=== PATIENT | male | born 1970 | race Caucasian/White ===

== ENCOUNTER 2022-08-21 09:47 | Inpatient (IN) ==
[2022-08-21] MEDS ORDERED: IOPAMIDOL 100 ML BOTTLE IV ONE (09:48)
--- NOTE | 2022-08-21 10:07 | Emergency Department Note ---
HPI General Chief complaint: Rib Pain Stated complaint: rib pain Time Seen by Provider: 08/21/22 10:02 Source: patient Mode of arrival: wheelchair Limitations: no limitations History of Present Illness HPI Narrative: Narrative: This 52-year-old returns for the second time in 24 hours after having been diagnosed with a PE yesterday. He returned last night for increased lateral chest pain and shortness of breath. He was given increased pain meds only. He states his O2 sats are dropping down into the 80s with exertion now and he complains again of more pain.. Patient's other past medical here history is a recent prostatectomy. As well as GERD. He denies any history of ulcers. Related Data Home Medications Medication Instructions Recorded Confirmed omeprazole 20 mg capsule,delayed 20 mg PO BID 01/16/21 01/22/22 release Previous Rx's Medication Instructions Recorded apixaban 5 mg tablet See Rx Instructions .Route 08/20/22 .COMPLEX #74 tabs Allergies Allergy/AdvReac Type Severity Reaction Status Date / Time gluten Allergy Severe throat Verified 08/21/22 09:50 contricts Review of Systems ROS ROS Narrative: Narrative: All systems ED: reviewed and negative except as stated. [facility] Narrative Patient History Narrative: Narrative: Medical/Surgical/Family History All Active Problems (Updated 08/21/22 @ 11:44 by Kenney Adam MD) Pulmonary embolism (Acute) Pulmonary air embolism (Acute) Acute atelectasis (Acute) Pulmonary emboli (Acute) Elevated PSA (Acute) Hives (Acute) Eosinophilic esophagitis (Acute) Elevated liver enzymes (Acute) Elevated cholesterol (Acute) Establishing care with new doctor, encounter for (Acute) Acid reflux (Chronic) Bloody stool (Chronic) Lower abdominal pain (Chronic) Acute URI (Chronic) Medical History Acid reflux Acute URI Bloody stool Hives Lower abdominal pain Surgical History History of appendectomy (~1990) Family History Father Adenocarcinoma, lung Hypertension Social History Smoking Status: Never smoker Alcohol Intake Frequency: a few times a month Substance Use: does not use Exam Narrative Narrative: Narrative: General alert and oriented x3 in no acute distress on 3 L of oxygen. CV: Regular rate and rhythm without murmurs clicks rubs or gallops. Lungs: Good air exchange with no rales rhonchi or wheezes heard. General Limitations: no limitations Course Vital Signs Vital signs: Vital Signs Temperature 97.2 F 08/21/22 09:47 Pulse Rate 114 H 08/21/22 09:47 Respiratory Rate 22 08/21/22 09:47 Blood Pressure 121/77 08/21/22 09:47 Pulse Oximetry (%) 92 08/21/22 09:47 Oxygen Delivery Method Room Air 08/21/22 09:47 Temperature 97.2 F 08/21/22 09:47 Pulse Rate 94 H 08/21/22 12:01 Respiratory Rate 20 08/21/22 11:34 Blood Pressure 128/85 08/21/22 12:01 Pulse Oximetry (%) 96 08/21/22 12:01 Oxygen Delivery Method Room Air 08/21/22 09:47 MDM MDM Narrative Medical decision making narrative: Narrative: EKG showed a normal sinus rhythm with no signs of ischemia or S1 Q 3 pattern. Patient's vitals show a tachycardia to 105 and tachypnea at 24 with an O2 sat on 3 L of 94%. CTA showed: Mediastinum, vascular:Main pulmonary artery, right pulmonary artery, left pulmonary artery are negative. Previous examination demonstrated bilateral pulmonary emboli to the lower lobes. There is decreased clot burden with mild residual abnormality. No evidence for new pulmonary emboli. Main pulmonary artery measures 3.2 cm in cross-sectional diameter which may indicate pulmonary arterial hypertension. Heart:No cardiomegaly. No pericardial effusion. No significant reflux of contrast material into the hepatic veins or inferior vena cava. Pleura:Small right pleural effusion is increased since previous examination. Elevated right hemidiaphragm has increased since previous study. Axilla, supraclavicular regions, chest wall:No pathologic axillary or supraclavicular adenopathy. IMPRESSION: 1. Decreased bilateral lower lobe collapse burden. No new pulmonary emboli 2. Increased right lower lobe consolidation and volume loss. Elevated right hemidiaphragm is more prominent than on previous examination. 3. Very small right pleural effusion 4. Hepatic steatosis 5. Mildly enlarged main pulmonary artery. This may be secondary to pulmonary arterial hypertension Doctor who was contacted (interventional radiologist) and read the CT report and he felt that the patient is having just atelectasis from splinting because of pain. He suggested put him in the hospital on oxygen and pain medicine and possibly using a heparin drip. Patient was placed on aspirin while here in the ED in addition to his Eliquis. It should be noted there is no more clot seen in the previous CT - only atelectasis. Patient had a interstitial inflammation reaction to the morphine. It was not exactly urticaria just approximately 8 inches of erythema by 3 inches across and the site where the morphine and been given. Sepsis Sepsis Identified: No Lab Data 08/21/22 10:20 Labs: Lab Results 08/21/22 08/21/22 08/21/22 Range/Units 10:20 10:20 10:22 WBC 12.9 H (4.5-11.0) K/mcL RBC 4.90 (4.63-6.08) M/mcL Hgb 14.9 (13.7-17.5) g/dL Hct 43.6 (40.1-51.0) % POC Hct (41-55) MCV 89.0 (80.0-100.0) fL MCH 30.4 (26.0-34.0) pg MCHC 34.2 (31.0-36.0) g/dL RDW 12.9 (11.5-14.5) % Plt Count 228 (140-440) K/mcL MPV 10.4 (8.8-12.5) fL Immature Gran % (Auto) 0.9 H (0.0-0.5) % Neut % (Auto) 78.1 H (38.0-78.0) % Lymph % (Auto) 7.8 L (15.5-49.0) % [place] % (Auto) 12.7 H (1.0-12.0) % Eos % (Auto) 0.2 (0.0-7.0) % Baso % (Auto) 0.3 (0.0-2.0) % Lymph # (Auto) 1.01 L (1.50-4.80) K/mcL [place] # (Auto) 1.64 H (0.10-0.90) K/mcL Eos # (Auto) 0.02 (0.00-0.70) K/mcL Baso # (Auto) 0.04 (0.00-0.30) K/mcL Immature Gran # 0.11 H (0.00-0.05) K/mcl Absolute Neutrophils 10.10 H (1.80-8.00) K/mcL POC PT (11.9-14.5) POC INR (0.8-1.2) POC Sodium (133-145) POC Potassium (3.3-5.1) POC Chloride (96-108) POC Total CO2 (22-30) POC BUN (6-20) POC Creatinine (0.6-1.2) POC Glucose (70-105) POC WB Ioniz Calcium (1.16-1.32) NT-Pro-B Natriuret Pep 75.9 (<125.0) pg/mL POC Troponin I < 0.02 (0.00-0.08) 08/21/22 08/21/22 Range/Units 10:25 10:26 WBC (4.5-11.0) K/mcL RBC (4.63-6.08) M/mcL Hgb (13.7-17.5) g/dL Hct (40.1-51.0) % POC Hct 43.0 (41-55) MCV (80.0-100.0) fL MCH (26.0-34.0) pg MCHC (31.0-36.0) g/dL RDW (11.5-14.5) % Plt Count (140-440) K/mcL MPV (8.8-12.5) fL Immature Gran % (Auto) (0.0-0.5) % Neut % (Auto) (38.0-78.0) % Lymph % (Auto) (15.5-49.0) % [place] % (Auto) (1.0-12.0) % Eos % (Auto) (0.0-7.0) % Baso % (Auto) (0.0-2.0) % Lymph # (Auto) (1.50-4.80) K/mcL [place] # (Auto) (0.10-0.90) K/mcL Eos # (Auto) (0.00-0.70) K/mcL Baso # (Auto) (0.00-0.30) K/mcL Immature Gran # (0.00-0.05) K/mcl Absolute Neutrophils (1.80-8.00) K/mcL POC PT 17.4 H (11.9-14.5) POC INR 1.5 H (0.8-1.2) POC Sodium 135 (133-145) POC Potassium 4.0 (3.3-5.1) POC Chloride 100 (96-108) POC Total CO2 23.0 (22-30) POC BUN 20 (6-20) POC Creatinine 1.2 (0.6-1.2) POC Glucose 114 H (70-105) POC WB Ioniz Calcium 1.18 (1.16-1.32) NT-Pro-B Natriuret Pep (<125.0) pg/mL POC Troponin I (0.00-0.08) Discharge Plan Patient/Caregiver Discharge Instructions Pt seen by [employer]ER/PA only: No Clinical Impression: Acute atelectasis, Pulmonary emboli Patient Disposition: Xfer As Inpt ([facility]) Follow up with: Dana Cantrell PA-C [Primary Care Provider] - Prescriptions: No Action omeprazole 20 mg capsule,delayed release(DR/EC) 20 mg PO BID apixaban 5 mg tablet See Rx Instructions .ROUTE .COMPLEX Qty: 74 0RF Rx Instructions: first 7 days 2 tab (10mg) BID following first 7 days 5mg BID
[2022-08-21] MEDS ORDERED: ASPIRIN 81 MG TAB.CHEW CHEWED ONE (10:17)
[2022-08-21 10:29] LABS: POC Calcium, Ionized 1.18 (1.16-1.32); POC Creatinine 1.2 (0.6-1.2)
[2022-08-21 10:29] LABS: POC INR 1.5 (0.8-1.2); POC Pro Time 17.4 (11.9-14.5)
--- NOTE | 2022-08-21 11:04 | Cat Scan Report ---
INDICATION: pos PE worse pain SOB COMPARISON: Previous pulmonary CTA dated 08/20/2022 TECHNIQUE: Axial images obtained through the chest. 80ml Isovue 370 injected intravenously, and scanning was performed during pulmonary arterial phase. Sagittally and coronally reformatted images were obtained. MIP reformatted images. FINDINGS: Lungs:Increased pulmonary parenchymal consolidation in the right lower lobe. Consolidation may be secondary to pulmonary infarction, infection, and volume loss. Findings are slightly worse than on 08/20/2022. There is mild linear density at the left lung base most consistent with atelectasis. Mediastinum, vascular:Main pulmonary artery, right pulmonary artery, left pulmonary artery are negative. Previous examination demonstrated bilateral pulmonary emboli to the lower lobes. There is decreased clot burden with mild residual abnormality. No evidence for new pulmonary emboli. Main pulmonary artery measures 3.2 cm in cross-sectional diameter which may indicate pulmonary arterial hypertension. Heart:No cardiomegaly. No pericardial effusion. No significant reflux of contrast material into the hepatic veins or inferior vena cava. Pleura:Small right pleural effusion is increased since previous examination. Elevated right hemidiaphragm has increased since previous study. Axilla, supraclavicular regions, chest wall:No pathologic axillary or supraclavicular adenopathy. Musculoskeletal:Negative thoracic spine. No compression fracture. No lytic lesion. No rib or sternal lesions Upper Abdomen:Low density liver consistent with hepatic steatosis IMPRESSION: 1. Decreased bilateral lower lobe collapse burden. No new pulmonary emboli 2. Increased right lower lobe consolidation and volume loss. Elevated right hemidiaphragm is more prominent than on previous examination. 3. Very small right pleural effusion 4. Hepatic steatosis 5. Mildly enlarged main pulmonary artery. This may be secondary to pulmonary arterial hypertension The exam was performed using radiation dose optimization techniques including, but not limited to, automated exposure control, adjustment of the mA and/or kV according to patient size and use of iterative reconstruction technique. Interpreted and Authenticated by: Phoenix Sorensen 08/21/22
[2022-08-21] MEDS: morphine 2 MG/ML VIAL IV PRN ×2 (11:21→13:07)
[2022-08-21 11:40] LABS: Basophils # (Auto) 0.04 K/mcL (0.00-0.30); Basophils % (Auto) 0.3 % (0.0-2.0); Eosinophils # (Auto) 0.02 K/mcL (0.00-0.70); Eosinophils % (Auto) 0.2 % (0.0-7.0); Hematocrit 43.6 % (40.1-51.0); Hemoglobin 14.9 g/dL (13.7-17.5); Lymphocytes # (Auto) 1.01 K/mcL (1.50-4.80); Lymphocytes % (Auto) 7.8 % (15.5-49.0); Mean Corpuscular HGB Conc 34.2 g/dL (31.0-36.0); Mean Platelet Volume 10.4 fL (8.8-12.5); Monocytes # (Auto) 1.64 K/mcL (0.10-0.90); Monocytes % (Auto) 12.7 % (1.0-12.0); Neutrophils % (Auto) 78.1 % (38.0-78.0); Platelet Count 228 K/mcL (140-440); Red Cell Distribution Width 12.9 % (11.5-14.5); WBC 12.9 K/mcL (4.5-11.0)
[2022-08-21 12:03] LABS: proBNP 75.9 pg/mL (<125.0)
[2022-08-21] MEDS ORDERED: diphenhydrAMINE 50 MG/ML VIAL IV ONE (12:09)
--- NOTE | 2022-08-21 13:12 | Internal Med History&Physical ---
HPI History of Present Illness Patient information: Note initiated : 08/21/22 at 1:02 pm Service Date, if different from initiated Date: [] Patient: Adam Ewing 52 y/o M admitted on for rib pain. Chief Complaint: [] History of present illness: Mr. Ewing is a 52 year old M Presents today with continued severe chest pain and shortness of breath and hypoxia with exertion. Patient states his troponin to the 80s with exertion and his said he dropped to the mid 70s when getting into the car. 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 Patient did have prostatectomy on the and currently has a Hendrickson catheter in place. Work-up in ED revealed bilateral lower lobe PEs. Patient was satting well on room air and was started on Eliquis. Patient does report an occasional cough of clear thick sputum. Some occasional nausea. He has sharp pain in the right lower back that is made worse by breathing. Heart rate 105. Vital signs stable otherwise. CTA today showed no new pulmonary emboli, atelectasis noted. Some consolidation right lower lobe increased. Review of Systems: Pertinent positives as above denies headache/vomiting/abdominal pain/diarrhea. Remaining 10 point review of system reviewed negative PFSH PFSH All Active Problems (Updated 08/21/22 @ 11:44 by Kenney Adam MD) Pulmonary embolism (Acute) Pulmonary air embolism (Acute) Acute atelectasis (Acute) Pulmonary emboli (Acute) Elevated PSA (Acute) Hives (Acute) Eosinophilic esophagitis (Acute) Elevated liver enzymes (Acute) Elevated cholesterol (Acute) Establishing care with new doctor, encounter for (Acute) Acid reflux (Chronic) Bloody stool (Chronic) Lower abdominal pain (Chronic) Acute URI (Chronic) Medical History Acid reflux Acute URI Bloody stool Hives Lower abdominal pain Surgical History History of appendectomy (~1990) Family History Father Adenocarcinoma, lung Hypertension Social History marital status: occupational status: employed occupation: [employer] smoking status: Never smoker smoking status stop date: 07/19/90 alcohol intake frequency: a few times a month substance use type: does not use MEDS/ALLERGIES Home Medications and Allergies Home Medications Medication Instructions Recorded Confirmed Type omeprazole 20 mg capsule,delayed 20 mg PO BID 01/16/21 01/22/22 History release apixaban 5 mg tablet See Rx Instructions .Route 08/20/22 Rx .COMPLEX #74 tabs Allergies Allergy/AdvReac Type Severity Reaction Status Date / Time gluten Allergy Severe throat Verified 08/21/22 09:50 contricts EXAM Constitutional Vitals: Temp Pulse Resp BP Pulse Ox O2 Del Method 97.2 F 82 20 124/87 96 Room Air 08/21/22 09:47 08/21/22 12:46 08/21/22 11:34 08/21/22 12:46 08/21/22 12:46 08/21/22 09:47 Exam: General: Alert, Awake, No acute Distress Eyes/N/T: EOMI, PERRL, Head/Neck: neck supple, normocephalic atraumatic CV: RRR, No murmurs, normal s1/s2 Pulm: Clear b/l anteriorly, no wheezing/rhonchi/rales Abd: soft, nontender, +BS x4 Ext: no clubbing/cyanosis/edema Neuro: Alert, no focal deficits, moves all extremities, CN 2-12 grossly intact, sensations intact b/l upper/lower Skin: warm/dry DATA Data Completed and Pending Labs: Labs from last 24 hours 08/21/22 08/21/22 08/21/22 10:26 10:25 10:22 WBC RBC Hgb Hct POC Hct 43.0 MCV MCH MCHC RDW Plt Count MPV Immature Gran % (Auto) Neut % (Auto) Lymph % (Auto) [place] % (Auto) Eos % (Auto) Baso % (Auto) Lymph # (Auto) [place] # (Auto) Eos # (Auto) Baso # (Auto) Immature Gran # Absolute Neutrophils POC PT 17.4 H POC INR 1.5 H POC Sodium 135 POC Potassium 4.0 POC Chloride 100 POC Total CO2 23.0 POC BUN 20 POC Creatinine 1.2 POC Glucose 114 H POC WB Ioniz Calcium 1.18 NT-Pro-B Natriuret Pep Procalcitonin POC Troponin I < 0.02 08/21/22 08/21/22 08/21/22 10:20 10:20 10:04 WBC 12.9 H RBC 4.90 Hgb 14.9 Hct 43.6 POC Hct MCV 89.0 MCH 30.4 MCHC 34.2 RDW 12.9 Plt Count 228 MPV 10.4 Immature Gran % (Auto) 0.9 H Neut % (Auto) 78.1 H Lymph % (Auto) 7.8 L [place] % (Auto) 12.7 H Eos % (Auto) 0.2 Baso % (Auto) 0.3 Lymph # (Auto) 1.01 L [place] # (Auto) 1.64 H Eos # (Auto) 0.02 Baso # (Auto) 0.04 Immature Gran # 0.11 H Absolute Neutrophils 10.10 H POC PT POC INR POC Sodium POC Potassium POC Chloride POC Total CO2 POC BUN POC Creatinine POC Glucose POC WB Ioniz Calcium NT-Pro-B Natriuret Pep 75.9 Procalcitonin 0.41 H POC Troponin I A/P Narrative A/P Narrative: A: *b/l PE: recent surgery(prostatectomy) *possible developing PNA: -elevated pct from above vs 2/2 recent surgery *Acute hypoxic respiratory failure: 2/2 above plus atelectasis *Pleuritic chest pain: 2/2 above *h/o prostate cancer: Recent prostatectomy -hendrickson in place and on macrobid *GERD: *Obesity: BMI 31 P: -Eliquis -O2 supp and wean as able -pain control -IS -Abx, pending SC -Home medication reconciliation -f/u with urology as scheduled -post-op urology nursing care cont Time Spent With Patient Time: Total time spent is greater than 50% in coordination of care (as documented) at patient's floor/unit and/or counseling patient: Initial: Total time with patient: 75 - 90 minutes
[2022-08-21] MEDS ORDERED: SENNOSIDES 1 TABLET PO PRN (14:54)
[2022-08-21] MEDS ORDERED: ACETAMINOPHEN 325 MG TABLET PO PRN (14:54)
[2022-08-21] MEDS ORDERED: MAGNESIUM SULFATE 2 GM/50 ML BAG IV PRN (14:54)
[2022-08-21] MEDS ORDERED: POTASSIUM CHLORIDE 40 MEQ in DEXTROSE 5% IN WATER 500 ML IV PRN (14:54)
[2022-08-21] MEDS ORDERED: cefTRIAXone 2 GM in DEXTROSE 5% IN WATER 50 ML IV SCH (14:54)
[2022-08-21] MEDS ORDERED: IPRATROPIUM/ALBUTEROL 3 ML AMPUL.NEB NEB PRN (14:54)
[2022-08-21] MEDS ORDERED: POTASSIUM CHLORIDE 20 MEQ TABLET PO PRN ×2 (14:54)
[2022-08-21] MEDS ORDERED: AZITHROMYCIN 500 MG in DEXTROSE 5% IN WATER 250 ML IV SCH (14:54)
[2022-08-21] MEDS ORDERED: ONDANSETRON 4 MG/2 ML VIAL IV PRN (14:54)
[2022-08-21] MEDS ORDERED: POLYETHYLENE GLYCOL 3350 17 GM PACKET PO PRN (14:54)
[2022-08-21] MEDS ORDERED: 0.9 % SODIUM CHLORIDE 1,000 ML IV SCH (14:54)
[2022-08-21] MEDS: HYDROcodone/APAP 5/325MG TABLET PO PRN ×3 (15:11→23:56)
[2022-08-21] MEDS: cefTRIAXone 2 GM in DEXTROSE 5% IN WATER 50 ML IV SCH (16:19)
[2022-08-21] MEDS: morphine 4 MG/ML VIAL IV PRN ×3 (16:19→21:39)
[2022-08-21 16:41] LABS: Lymphocytes % 8 % (15-49); Monocytes % (Manual) 8 % (1-12); Platelet Estimate NORMAL (Normal); RBC Morphology NORMAL (Normal); Segmented Neutrophils % 84 % (38-78)
[2022-08-21] MEDS: 0.9 % SODIUM CHLORIDE 10 ML SYRINGE IV SCH ×2 (17:30→21:21)
[2022-08-21] MEDS: AZITHROMYCIN 500 MG in DEXTROSE 5% IN WATER 250 ML IV SCH (17:35)
[2022-08-21] MEDS: DOCUSATE SODIUM 100 MG CAPSULE PO SCH (21:21)
[2022-08-21] MEDS: APIXABAN 5 MG TABLET PO SCH (21:21)
[2022-08-21] MEDS ORDERED: HYDROcodone/APAP 5/325MG TABLET PO ONE (23:54)
[2022-08-22] MEDS: morphine 4 MG/ML VIAL IV PRN ×2 (01:56→05:24)
[2022-08-22] MEDS ORDERED: HYDROcodone/APAP 5/325MG TABLET PO ONE (04:00)
[2022-08-22] MEDS: HYDROcodone/APAP 5/325MG TABLET PO PRN ×2 (04:01→11:22)
[2022-08-22] MEDS: 0.9 % SODIUM CHLORIDE 10 ML SYRINGE IV SCH ×2 (05:25→14:03)
[2022-08-22 06:31] LABS: Basophils # (Auto) 0.05 K/mcL (0.00-0.30); Basophils % (Auto) 0.4 % (0.0-2.0); Eosinophils # (Auto) 0.21 K/mcL (0.00-0.70); Eosinophils % (Auto) 1.8 % (0.0-7.0); Hematocrit 40.6 % (40.1-51.0); Hemoglobin 13.6 g/dL (13.7-17.5); Lymphocytes # (Auto) 1.28 K/mcL (1.50-4.80); Lymphocytes % (Auto) 11.1 % (15.5-49.0); Mean Cell Volume 88.3 fL (80.0-100.0); Mean Corpuscular HGB Conc 33.5 g/dL (31.0-36.0); Mean Platelet Volume 9.9 fL (8.8-12.5); Monocytes % (Auto) 15.6 % (1.0-12.0); Neutrophils % (Auto) 70.3 % (38.0-78.0); Platelet Count 220 K/mcL (140-440); Red Cell Distribution Width 12.9 % (11.5-14.5); WBC 11.5 K/mcL (4.5-11.0)
[2022-08-22 07:18] LABS: Blood Urea Nitrogen 18 mg/dL (6-20); Calcium 8.8 mg/dL (8.6-10.4); Carbon Dioxide 24 mmol/L (22-30); Chloride 96 mmol/L (96-108); Glomerular Filtration Rate 103; Glucose 88 mg/dL (70-105)
[2022-08-22] MEDS ORDERED: OMEPRAZOLE 20 MG CAPSULE PO SCH (07:30)
--- NOTE | 2022-08-22 07:39 | Internal Med Progress Note ---
SUBJECTIVE Subjective Patient information: Note initiated : 08/22/22 at 7:36 am Service Date, if different from initiated Date: [] Patient: Adam Ewing 52 y/o M admitted on 08/21/22 for rib pain. Chief Complaint: [] Interval history: History of present illness: Mr. Ewing is a 52 year old M Presents today with continued severe chest pain and shortness of breath and hypoxia with exertion. Patient states his troponin to the 80s with exertion and his said he dropped to the mid 70s when getting into the car. 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 Patient did have prostatectomy on the and currently has a Hendrickson catheter in place. Work-up in ED revealed bilateral lower lobe PEs. Patient was satting well on room air and was started on Eliquis. Patient does report an occasional cough of clear thick sputum. Some occasional nausea. He has sharp pain in the right lower back that is made worse by breathing. Heart rate 105. Vital signs stable otherwise. CTA today showed no new pulmonary emboli, atelectasis noted. Some consolidation right lower lobe increased. 2/4 Patient feeling little better today. Shortness of breath improving. Chest pain improving. Was placed on oxygen last night. We will trial him on room air at rest and ambulation today. Leukocytosis improving. Mild hyponatremia today. Procalcitonin slightly improved. Review of Systems: denies headache/fever/chills/nausea/vomiting/chest or abdominal pain/diarrhea. Otherwise see above. Constitutional Vitals: Vital Signs Temp Pulse Resp BP Pulse Ox O2 Del Method O2 Flow Rate 98 F 88 20 133/86 97 Nasal Cannula 2 08/22/22 07:35 08/22/22 07:35 08/22/22 07:35 08/22/22 07:35 08/22/22 07:35 08/22/22 07:35 08/22/22 07:35 Period Temp Pulse Resp BP Sys/Pierre Pulse Ox O2 Del Method O2 Flow Rate Last 24 Hr 97.2 F-99.5 F 80-114 16-24 83-138/62-94 92-97 Nasal Cannula- Room Air 1-2 Intake and Output 08/21/22 08/22/22 08/22/22 19:59 03:59 11:59 Intake Total 530 550 Output Total 100 550 Balance 430 0 Weight 99.79 kg 103.192 kg Intake & Output: Intake & Output 08/21/22 08/22/22 08/22/22 19:59 03:59 11:59 Intake Total 530 550 Output Total 100 550 Balance 430 0 Weight 99.79 kg 103.192 kg Intake: IV 50 Rocephin 2 gm In Dextrose 5% in 50 Water 50 ml @ 100 mls/hr IV Q24H [facility] Rx#:[id number] Oral 480 550 Output: Urine Catheter Amount 100 550 Other: Meal Dinner Percent of Meal Consumed 75% Feeding Ability Assist with Tray Set Up Urine Appearance Clear Cloudy Uretheral (Hendrickson) Clear Urine Color Light Rocio Red Brown Uretheral (Hendrickson) Light Rocio Exam: General: Alert, Awake, No acute Distress Eyes/N/T: EOMI, Head/Neck: neck supple, CV: RRR, No murmurs, Pulm: RLL rales/rhonchi, no wheezing Abd: soft, nontender, +BS x4 Ext: no clubbing/cyanosis/edema Neuro: Alert, no focal deficits, moves all extremities, Skin: warm/dry OBJ DATA Labs 08/22/22 05:40 08/22/22 05:40 Labs: Abnormal Lab Results 08/22/22 08/22/22 08/22/22 05:40 05:40 05:40 WBC 11.5 H RBC 4.60 L Hgb 13.6 L Immature Gran % (Auto) 0.8 H Neut % (Auto) Lymph % (Auto) 11.1 L [place] % (Auto) 15.6 H Lymph # (Auto) 1.28 L [place] # (Auto) 1.80 H Seg Neutrophils % Lymphocytes % Immature Gran # 0.09 H Absolute Neutrophils 8.08 H POC PT POC INR Sodium 130 L POC Glucose Procalcitonin 0.35 H 08/21/22 08/21/22 08/21/22 10:26 10:25 10:20 WBC RBC Hgb Immature Gran % (Auto) Neut % (Auto) Lymph % (Auto) [place] % (Auto) Lymph # (Auto) [place] # (Auto) Seg Neutrophils % 84 H Lymphocytes % 8 L Immature Gran # Absolute Neutrophils POC PT 17.4 H POC INR 1.5 H Sodium POC Glucose 114 H Procalcitonin 08/21/22 08/21/22 10:20 10:04 WBC 12.9 H RBC Hgb Immature Gran % (Auto) 0.9 H Neut % (Auto) 78.1 H Lymph % (Auto) 7.8 L [place] % (Auto) 12.7 H Lymph # (Auto) 1.01 L [place] # (Auto) 1.64 H Seg Neutrophils % Lymphocytes % Immature Gran # 0.11 H Absolute Neutrophils 10.10 H POC PT POC INR Sodium POC Glucose Procalcitonin 0.41 H Meds: Medications Acetaminophen (Acetaminophen 325 Mg Tablet) 650 mg PO Q6HP PRN; Protocol PRN Reason: Per Pain Protocol/Fever > 101 Hydrocodone Bitart/Acetaminophen (Hydrocodone/Apap 5/325mg Tablet) 1 - 2 tab PO Q4HP PRN PRN Reason: PAIN LEVEL 3-6 Last Admin: 08/22/22 04:01 Dose: 2 tab Albuterol/Ipratropium (Ipratropium/Albuterol 3 Ml Ampul.Neb) 3 ml NEB Q4HP PRN PRN Reason: Shortness Of Breath Apixaban (Apixaban 5 Mg Tablet) 10 mg PO BID [facility] Last Admin: 08/21/22 21:21 Dose: 10 mg Docusate Sodium (Docusate Sodium 100 Mg Capsule) 100 mg PO BID [facility] Last Admin: 08/21/22 21:21 Dose: 100 mg Potassium Chloride 40 meq/ (Dextrose) 520 mls @ 130 mls/hr IV UD PRN PRN Reason: Potassium < 3 Magnesium Sulfate (Magnesium Sulfate) 2 gm in 50 mls @ 50 mls/hr IV UD PRN PRN Reason: Magnesium </= 1.6 Ceftriaxone Sodium 2 gm/ (Dextrose) 50 mls @ 100 mls/hr IV Q24H [facility]; Protocol Last Infusion: 08/21/22 17:30 Dose: Infused Azithromycin 500 mg/ Dextrose 250 mls @ 250 mls/hr IV Q24H [facility]; Protocol Stop: 08/23/22 17:59 Last Admin: 08/21/22 17:35 Dose: 250 mls/hr Morphine Sulfate (Morphine 4 Mg/Ml Vial) 0 mg IV Q3HP PRN PRN Reason: Pain Last Admin: 08/22/22 05:24 Dose: 2 mg Omeprazole (Omeprazole 20 Mg Capsule) 20 mg PO BIDAC [facility] Ondansetron HCl (Ondansetron 4 Mg/2 Ml Vial) 4 mg IV Q4HP PRN PRN Reason: Nausea And Vomiting Oxybutynin Chloride (Oxybutynin Chloride 5 Mg Tab.Xl.24h) 10 mg PO DAILY ZAYRA Polyethylene Glycol (Polyethylene Glycol 3350 17 Gm Packet) 17 gm PO DAILYP PRN PRN Reason: Constipation Potassium Chloride (Potassium Chloride 20 Meq Tablet) 40 meq PO UD PRN PRN Reason: Potssium is 3-3.5 Potassium Chloride (Potassium Chloride 20 Meq Tablet) 40 meq PO UD PRN PRN Reason: Potassium < 3 Senna (Sennosides 1 Tablet) 2 tab PO DAILYP PRN PRN Reason: Constipation Sodium Chloride (0.9 % Sodium Chloride 10 Ml Syringe) 10 ml IV Q8 [facility] Last Admin: 08/22/22 05:25 Dose: 10 ml A/P Narrative A/P Narrative: A: *b/l PE: recent surgery(prostatectomy) *RLL PNA: -elevated pct from above vs 2/2 recent surgery. possible pulm infarction from PE *Acute hypoxic respiratory failure: 2/2 above plus atelectasis -did go to room air yesterday afternoon, but back on 2L now, will trial back on room air and monitor ambulation *Pleuritic chest pain: 2/2 above *h/o prostate cancer: Recent prostatectomy -hendrickson in place and on macrobid *GERD: *Obesity: BMI 31 *Hyponatermia: P: -Eliquis -O2 supp and wean as able -pain control -IS -Abx, pending SC -f/u with urology as scheduled -post-op urology nursing care cont Time Spent With Patient Time: Total time spent is greater than 50% in coordination of care (as documented) at patient's floor/unit and/or counseling patient: Subsequent: Total time with patient: 35 - 49 minutes QUALITY VTE Deep Vein Thrombosis/Pulmonary Embolism Present on Admission: No
[2022-08-22] MEDS ORDERED: OXYBUTYNIN CHLORIDE 5 MG TAB.XL.24H PO SCH (09:00)
[2022-08-22] MEDS: cefTRIAXone 2 GM in DEXTROSE 5% IN WATER 50 ML IV SCH (09:10)
[2022-08-22] MEDS: APIXABAN 5 MG TABLET PO SCH (09:29)
[2022-08-22] MEDS: DOCUSATE SODIUM 100 MG CAPSULE PO SCH (09:30)
[2022-08-22] MEDS: AZITHROMYCIN 500 MG in DEXTROSE 5% IN WATER 250 ML IV SCH (09:49)
--- NOTE | 2022-08-22 11:27 | Discharge Summary ---
Discharge Provider Provider IMPORTANT FOLLOW-UP INFORMATION FOR PCP: Patient information: Note initiated : 08/22/22 at 11:25 am Service Date, if different from initiated Date: [] Patient: Adam Ewing 52 y/o M admitted on 08/21/22 for rib pain. Chief Complaint: [] Date of admission: 08/21/22 14:46 Discharge date: 08/22/22 Primary care physician: Dana Cantrell PA-C Consults: 08/21/22 Consult to Physician [CONS] Stat Comment: Consulting Provider: Maxwell Barrera Reason For Exam: Physician to Consult COURSE Hospital Course Hospital course: History of present illness: Mr. Ewing is a 52 year old M Presents today with continued severe chest pain and shortness of breath and hypoxia with exertion. Patient states his troponin to the 80s with exertion and his said he dropped to the mid 70s when getting into the car. 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 Patient did have prostatectomy on the and currently has a Hendrickson catheter in place. Work-up in ED revealed bilateral lower lobe PEs. Patient was satting well on room air and was started on Eliquis. Patient does report an occasional cough of clear thick sputum. Some occasional nausea. He has sharp pain in the right lower back that is made worse by breathing. Heart rate 105. Vital signs stable otherwise. CTA today showed no new pulmonary emboli, atelectasis noted. Some consolidation right lower lobe increased. 2/4 Patient feeling little better today. Shortness of breath improving. Chest pain improving. Was placed on oxygen last night. We will trial him on room air at rest and ambulation today. Leukocytosis improving. Mild hyponatremia today. Procalcitonin slightly improved. Patient responded quicker than expected. patient ambulating in hallway this afternoon on room air maintaining 90 to 93%, no significant subjective dyspnea. Patient okay for discharge home. A: *b/l PE: recent surgery(prostatectomy) *RLL PNA: *Acute hypoxic respiratory failure: 2/2 above plus atelectasis *Pleuritic chest pain: 2/2 above *h/o prostate cancer: Recent prostatectomy -hendrickson in place and on macrobid *GERD: *Obesity: BMI 31 *Hyponatermia: P: -Eliquis -Abx -f/u with urology as scheduled Discharge diagnosis: pe, pna, hypoxia Secondary discharge diagnosis: GERD obesity hyponatremia Time Spent with Patient Time attestation: Total time spent providing and/or coordinating discharge services: Time spent: Greater than 30 minutes EXAM Constitutional Vitals: Temp Pulse Resp BP Pulse Ox O2 Del Method O2 Flow Rate 98 F 88 20 133/86 97 Nasal Cannula 2 08/22/22 07:35 08/22/22 07:35 08/22/22 07:35 08/22/22 07:35 08/22/22 07:35 08/22/22 07:35 08/22/22 07:35 Discharge Data Data Completed and Pending Labs on day of discharge: Labs from last 24 hours 08/22/22 08/22/22 08/22/22 09:37 05:40 05:40 WBC RBC Hgb Hct MCV MCH MCHC RDW Plt Count MPV Immature Gran % (Auto) Neut % (Auto) Lymph % (Auto) [place] % (Auto) Eos % (Auto) Baso % (Auto) Lymph # (Auto) [place] # (Auto) Eos # (Auto) Baso # (Auto) Seg Neutrophils % Lymphocytes % Monocytes % (Manual) Immature Gran # Absolute Neutrophils Platelet Estimate RBC Morphology Sodium 130 L Potassium 4.2 Chloride 96 Carbon Dioxide 24 Anion Gap 10.0 BUN 18 Creatinine 0.8 GFR Calculation 103 Glucose 88 Calcium 8.8 NT-Pro-B Natriuret Pep Procalcitonin 0.35 H Ur Strep pneumoniae Ag Negative 08/22/22 08/21/22 08/21/22 05:40 10:20 10:20 WBC 11.5 H RBC 4.60 L Hgb 13.6 L Hct 40.6 MCV 88.3 MCH 29.6 MCHC 33.5 RDW 12.9 Plt Count 220 MPV 9.9 Immature Gran % (Auto) 0.8 H Neut % (Auto) 70.3 Lymph % (Auto) 11.1 L [place] % (Auto) 15.6 H Eos % (Auto) 1.8 Baso % (Auto) 0.4 Lymph # (Auto) 1.28 L [place] # (Auto) 1.80 H Eos # (Auto) 0.21 Baso # (Auto) 0.05 Seg Neutrophils % 84 H Lymphocytes % 8 L Monocytes % (Manual) 8 Immature Gran # 0.09 H Absolute Neutrophils 8.08 H Platelet Estimate Normal RBC Morphology Normal Sodium Potassium Chloride Carbon Dioxide Anion Gap BUN Creatinine GFR Calculation Glucose Calcium NT-Pro-B Natriuret Pep 75.9 Procalcitonin Ur Strep pneumoniae Ag 08/21/22 08/21/22 10:20 10:04 WBC 12.9 H RBC 4.90 Hgb 14.9 Hct 43.6 MCV 89.0 MCH 30.4 MCHC 34.2 RDW 12.9 Plt Count 228 MPV 10.4 Immature Gran % (Auto) 0.9 H Neut % (Auto) 78.1 H Lymph % (Auto) 7.8 L [place] % (Auto) 12.7 H Eos % (Auto) 0.2 Baso % (Auto) 0.3 Lymph # (Auto) 1.01 L [place] # (Auto) 1.64 H Eos # (Auto) 0.02 Baso # (Auto) 0.04 Seg Neutrophils % Lymphocytes % Monocytes % (Manual) Immature Gran # 0.11 H Absolute Neutrophils 10.10 H Platelet Estimate RBC Morphology Sodium Potassium Chloride Carbon Dioxide Anion Gap BUN Creatinine GFR Calculation Glucose Calcium NT-Pro-B Natriuret Pep Procalcitonin 0.41 H Ur Strep pneumoniae Ag Preliminary micro results at discharge 08/22/22 04:35 Gram Stain - Preliminary Sputum source - Expectorated Discharge Plan Patient/Caregiver Discharge Instructions Activity: increase activity as tolerated Diet: Regular Diet Prescriptions: New cefdinir 300 mg capsule 300 mg PO BID Qty: 8 0RF Continued omeprazole 20 mg capsule,delayed release(DR/EC) 20 mg PO BID apixaban 5 mg tablet See Rx Instructions .ROUTE .COMPLEX Qty: 74 0RF Rx Instructions: first 7 days 2 tab (10mg) BID following first 7 days 5mg BID nitrofurantoin monohyd/m-cryst 100 mg capsule 1 cap PO BID oxybutynin chloride 10 mg tablet extended release 24hr 10 mg PO QDAY hydrocodone-acetaminophen 7.5-325 mg tablet 1 - 2 tab PO Q4 PRN (Reason: Pain) Qty: 20 0RF Follow Up Plan Follow up with: Dana Cantrell PA-C [Primary Care Provider] - Patient Disposition: Home, Self-Care Prognosis: Fair Overall status at discharge: patient is progressing back to baseline Discharge Orders: Discharge Order (Routine); Ordered 08/22/22 Ordered By: Maxwell Brarera [facility] Deep Vein Thrombosis/Pulmonary Embolism Present on Admission: No
--- NOTE | 2022-08-24 13:34 | EKG ---
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
== END 2022-08-22 16:15 | disposition home or self-care (01) | DRG 175 ==
LOC: ED 09:47 → MEDSUR 14:46
PROVIDERS: ADMIT Internal Medicine; ATTEND Internal Medicine